=== PATIENT | male | born 1980 | race Caucasian/White ===

== ENCOUNTER 2017-12-27 17:16 | Emergency (ER) | payer BC ==
[~2017-12-27] VITALS: Ht 182.9 cm; Wt 109.4 kg
[2017-12-27 18:41] LABS: HEMATOCRIT 44.2 % (39.0-50.0); HEMOGLOBIN 15.3 g/dl (14.0-18.0); IMMATURE GRANULOCYTES 0.3 % (0.0-1.0); MEAN CELL VOLUME 92.7 fL CALC (80.0-100.0); MEAN CORPUSCULAR HGB 32.1 pG CALC (26.0-32.0); MEAN CORPUSCULAR HGB CONC 34.6 g/L CALC (32.0-36.0); NEUT# 7.54 thou/uL (1.82-7.42); RED BLOOD COUNT 4.77 mill/uL (4.70-6.10); RED CELL DISTRI WIDTH 11.9 % (11.5-15.5)
[2017-12-27 18:57] LABS: ANION GAP 17 (6-22 (CALC)); BUN 23 mg/dL (9-20); BUN/CREATININE RATIO 24 (12-20 (CALC)); CARBON DIOXIDE 25 mmol/l (22-30); CHLORIDE 109 mmol/l (95-108); GFR > 60 ML/MIN (>=60 (CALC)); GFR FOR AFR.AMER. > 60 ML/MIN (>=60 (CALC)); POTASSIUM 3.8 mmol/l (3.5-5.1); SODIUM 147 mmol/l (137-146)
[2017-12-27] MEDS ORDERED: PERCOCET 5/325M1 TAB PO (20:27)
[2017-12-27] MEDS ORDERED: AUGMENTIN875TAB PO (20:27)
[2017-12-27 22:22] VITALS: BP 141/84
== END 2017-12-27 22:23 | disposition home or self-care (01) | DRG 153 ==
LOC: ED 17:16
PROVIDERS: Family Medicine
DX: J32.0 Chronic maxillary sinusitis (principal)

== ENCOUNTER 2018-08-03 20:05 | Emergency (ER) | payer OTHER ==
[~2018-08-03] VITALS: Ht 182.9 cm; Wt 113.0 kg
[~2018-08-03 20:05] MED LIST: AUGMENTIN875TAB PO; PERCOCET 5/325M1 TAB PO
[2018-08-03 21:00] VITALS: BP 128/85
== END 2018-08-03 21:00 | disposition home or self-care (01) | DRG 125 ==
LOC: ED 20:05
PROC: 08CSXZZ Extirpation of Matter from Right Conjunctiva, External Approach (ICD-10-PCS; principal; 2018-08-03)
DX: T15.11XA Foreign body in conjunctival sac, right eye, initial encounter (principal); X58.XXXA Exposure to other specified factors, initial encounter